=== PATIENT | female | born 1960 | race Caucasian/White ===

== ENCOUNTER 2016-07-20 02:15 | Inpatient (IN) | payer BC ==
[~2016-07-20] VITALS: Ht 172.7 cm; Wt 93.7 kg
[~2016-07-20 02:15] MED LIST: GLUCOSAMINE CHOND PO; MULTTAB58 PO
[2016-07-20 03:54] LABS: BASO % 0.5 %; BASO ABS # 0.03 K/uL (0-0.2); COMPLETE YES; EOS % 1.9 %; HEMATOCRIT 40.1 % (37-47); IG% 0.2 %; LYMPH % 41.4 %; LYMPH ABS # 2.42 K/uL (1.2-3.4); MEAN CELL VOLUME 87.2 fL (80-100); MEAN CORPUSCULAR HEMOGLOBIN 29.3 pg (25-34); MEAN CORPUSCULAR HGB CONC 33.7 g/dl (32-36); MEAN PLATELET VOLUME 10.5 fL (7.4-10.4); MONO % 7.4 %; NEUT % 48.6 %; PLATELET COUNT 244 K/uL (130-400); WHITE BLOOD COUNT 5.84 K/uL (4.8-10.8)
[2016-07-20 04:01] LABS: ALT/SGPT 28 U/L (12-78); AST/SGOT 21 U/L (15-37); BLOOD UREA NITROGEN 19 mg/dl (7-18); CALCIUM 8.6 mg/dl (8.5-10.1); CARBON DIOXIDE 27 mmol/L (21-32); CHLORIDE 108 mmol/L (98-107); CREATININE 0.94 mg/dl (0.60-1.20); GLUCOSE 94 mg/dl (70-99); POTASSIUM 3.8 mmol/L (3.5-5.1); SODIUM 146 mmol/L (136-145)
[2016-07-20 04:06] LABS: ALKALINE PHOSPHATASE 64 U/L (45-117)
--- NOTE | 2016-07-20 05:03 | EMERGENCY ROOM VISIT NOTE ---
History First contact with patient: 02:30 Chief Complaint: CHEST PAIN Stated Complaint: CHEST PAIN,TROUBLE BREATHING,ELEVATED BLOODBRESSUR Nursing Triage Summary: 130 pt started with chest pain. would have rated it an 8/10. started out as a burning pain, then became dull. pain radiated down right arm and into right hand. now pt c/o tightness and pressure in her chest. History of Present Illness The patient is a 55 year old female who presents to the Emergency Room with complaints of chest pain that woke her up out of sleep at 1:30 this morning that rated on both arms that diaphoretic with this. The pain has gotten slightly better. It comes and goes in severity. She had pizza last night for dinner. Family history of heart disease of her mother in her 70s. Patient has no active medical problems. No prior stress test or echocardiogram. No recent travel. She does not smoke. No diabetes or blood pressure or cholesterol. She describes the pain as pressure, ranging in severity 6 out of 10 left side of the chest. It does not currently radiate. Patient denies dyspnea, fever, chills, abdominal pain, vomiting, diarrhea, leg pain or swelling. She states activity makes it slightly worse. Review of Systems See HPI for pertinent positives & negatives. A total of 10 systems reviewed and were otherwise negative. Past Medical/Surgical History Hysterectomy, cholecystectomy Social History Smoking Status: Never Smoker Smokeless Tobacco Use: No Alcohol Use: none Drug Use: none Marital Status: Housing Status: lives with family Current/Historical Medications Scheduled Multiple Vitamin (Multivitamin), 1 TAB PO DAILY Allergies Coded Allergies: [place] (Verified Allergy, Intermediate, RASH,N/V, 07/20/16) Meperidine (Verified Adverse Reaction, Intermediate, N/V, 07/20/16) Physical Exam Vital Signs Date Time Temp Pulse Resp B/P Pulse Ox O2 Delivery O2 Flow Rate FiO2 07/20/16 04:12 71 20 132/90 98 Room Air 07/20/16 03:01 61 19 132/69 97 Room Air 07/20/16 02:32 99 Room Air 07/20/16 02:29 64 07/20/16 02:18 36.4 75 16 143/95 99 Room Air Physical Exam VITALS: Vitals are noted on the nurse's note and reviewed by myself. Vital signs stable. GENERAL: Pleasant female, in no acute distress, nondiaphoretic, well-developed well-nourished. SKIN: The skin was without rashes, erythema, edema, or bruising. There is no tenting of the skin. Capillary reflex less than 2 seconds. HEAD: Normocephalic atraumatic. EARS: External auditory canals clear, tympanic membranes pearly dale without erythema or effusion bilaterally. EYES: Pupils equal round and reactive to light and accommodation. Conjunctivae without injection, sclerae without icterus. Extraocular movements intact. NOSE: Patent, turbinates without inflammation or discharge. MOUTH: Mucous membranes moist. Pharynx without erythema or exudate. Uvula midline. Airway patent. Tongue does not deviate. NECK: Supple without nuchal rigidity. No lymphadenopathy. No thyromegaly. Cervical spine is nontender. No JVD. HEART: Regular rate and rhythm without murmurs gallops or rubs. Chest nontender to palpation LUNGS: Clear to auscultation bilaterally without wheezes, rales or rhonchi. No dullness to percussion. No retractions or accessory muscle use. ABDOMEN: Positive bowel sounds x 4. Normal tympanic percussion. Soft, nontender, without masses or organomegaly. Joseph sign negative. No guarding or rebound tenderness. MUSCULOSKELETAL: No muscle atrophy, erythema, or edema noted. NEURO: Patient was alert and oriented to person place and time. Normal sensation to light and sharp touch. No focal neurological deficits. Medical Decision & Procedures Laboratory Results 07/20/16 02:25 Red Blood Count 4.60, Mean Corpuscular Volume 87.2, Mean Corpuscular Hemoglobin 29.3, Mean Corpuscular Hemoglobin Concent 33.7, Mean Platelet Volume 10.5, Neutrophils (%) (Auto) 48.6, Lymphocytes (%) (Auto) 41.4, Monocytes (%) (Auto) 7.4, Eosinophils (%) (Auto) 1.9, Basophils (%) (Auto) 0.5, Neutrophils # (Auto) 2.84, Lymphocytes # (Auto) 2.42, Monocytes # (Auto) 0.43, Eosinophils # (Auto) 0.11, Basophils # (Auto) 0.03 07/20/16 02:25 Test 07/20/16 02:25 07/20/16 02:48 White Blood Count 5.84 K/uL (4.8-10.8) Red Blood Count 4.60 M/uL (4.2-5.4) Hemoglobin 13.5 g/dL (12.0-16.0) Hematocrit 40.1 % (37-47) Mean Corpuscular Volume 87.2 fL (80-100) Mean Corpuscular Hemoglobin 29.3 pg (25-34) Mean Corpuscular Hemoglobin Concent 33.7 g/dl (32-36) Platelet Count 244 K/uL (130-400) Mean Platelet Volume 10.5 fL (7.4-10.4) Neutrophils (%) (Auto) 48.6 % Lymphocytes (%) (Auto) 41.4 % Monocytes (%) (Auto) 7.4 % Eosinophils (%) (Auto) 1.9 % Basophils (%) (Auto) 0.5 % Neutrophils # (Auto) 2.84 K/uL (1.4-6.5) Lymphocytes # (Auto) 2.42 K/uL (1.2-3.4) Monocytes # (Auto) 0.43 K/uL (0.11-0.59) Eosinophils # (Auto) 0.11 K/uL (0-0.5) Basophils # (Auto) 0.03 K/uL (0-0.2) RDW Standard Deviation 42.4 fL (36.4-46.3) RDW Coefficient of Variation 13.3 % (11.5-14.5) Immature Granulocyte % (Auto) 0.2 % Immature Granulocyte # (Auto) 0.01 K/uL (0.00-0.02) Anion Gap 11.0 mmol/L (3-11) Est Creatinine Clear Calc Drug Dose 82.8 ml/min Estimated GFR () 80.3 Estimated GFR (Non- 69.3 BUN/Creatinine Ratio 20.0 (10-20) Calcium Level 8.6 mg/dl (8.5-10.1) Total Bilirubin 0.7 mg/dl (0.2-1) Direct Bilirubin 0.1 mg/dl (0-0.2) Aspartate Amino Transf (AST/SGOT) 21 U/L (15-37) Alanine Aminotransferase (ALT/SGPT) 28 U/L (12-78) Alkaline Phosphatase 64 U/L (45-117) Troponin I < 0.015 ng/ml (0-0.045) Total Protein 7.2 gm/dl (6.4-8.2) Albumin 3.9 gm/dl (3.4-5.0) Lipase 475 U/L (73-393) Bedside D-Dimer 85 ng/mlFEU (0-450) ED Course Prior records/ancillary studies reviewed. Triage Nursing notes reviewed. Additional history obtained from family The patient's history was concerning for chest pain. Differential diagnosis: Etiologies such as cardiac ischemia, aortic dissection, pulmonary embolism, pneumonia, pneumothorax, musculoskeletal, infections, pericarditis, myocarditis , esophageal rupture, gastrointestinal, as well as others were entertained. Physical examination: As above. ER treatment provided: Patient was observed On reassessment the patient felt better. Diagnostic interpretation by me: The electrocardiogram was negative for pathologic change. Normal sinus, normal intervals, no acute ST-T wave changes, rate of 62. Impression normal sinus rhythm interpreted by myself repeat EKG is unchanged The labs revealed negative d-dimer negative troponin Imaging studies: Chest x-ray with no overt heart failure, consolidation or pneumothorax per my interpretation Consultation: A consultation was placed with the hospitalist, Dr Rubi. The case was discussed and diagnostics were reviewed. The patient was evaluated in the ER for further treatment. Exam and history seem consistent with chest pain could be cardiac in etiology. Patient will be evaluated by medicine for possible admission. Negative d- dimer. Negative troponin. Unchanged EKG 2. She is a family history of heart disease. Symptoms were exertional.By the evaluation outlined above emergent etiologies such as aortic dissection, pulmonary embolism, pneumonia, pneumothorax, infections, pericarditis, myocarditis, gastrointestinal, as well as others were deemed relatively unlikely. The pt informed about the findings as listed above. All questions were answered and pleased with the treatment. Case reviewed with my attending Medical Decision As above Impression Primary Impression: Precordial chest pain Departure Information Dispostion Being Evaluated By Hospitalist Condition FAIR Referrals No Doctor, Assigned (PCP) Patient Instructions My [facility]
[2016-07-20] MEDS ORDERED: ZOLPIDEM TARTRATE 5 MG TAB PO PRN (05:15)
[2016-07-20] MEDS ORDERED: NITROGLYCERIN 0.4 MG SL PER TAB CHARGE SL PRN (05:15)
[2016-07-20] MEDS ORDERED: ACETAMINOPHEN 325 MG TAB PO PRN (05:15)
[2016-07-20] MEDS ORDERED: MAGNESIUM HYDROXIDE SUSP 30 ML UDC PO PRN (05:15)
[2016-07-20] MEDS ORDERED: ONDANSETRON INJ 2 MG/ML 2 ML VIAL IV PRN (05:15)
[2016-07-20] MEDS ORDERED: POLYETHYLENE (MIRALAX) 17 GM PACK PO PRN (05:15)
[2016-07-20] MEDS ORDERED: ALUMINUM/MAGNESIUM/SIMETH (MAALOX MAX) 30 ML UDC PO PRN (05:15)
[2016-07-20] MEDS ORDERED: MoRPHine SULFATE 2 MG/ML CARP IV PRN (05:15)
--- NOTE | 2016-07-20 05:28 | History and Physical ---
History & Physical Date & Time of Service: Jul 20, 2016 at 05:12 Chief Complaint: Chest Pain,Trouble Breathing,Elevated Bloodbressur Primary Care Physician: No Doctor, Assigned History of Present Illness Source: patient 55 y/o F who denies any active medical issues presents with a chief complaint of chest pain. The pt awoke form sleep with L sided CP accompanied by SOB and diaphoresis. She denies nausea, vomiting, lightheadedness or palpitations Her CP recurred in the ER which resolved spontaneously. 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 - does not smoke or drink Smoking Status: Never Smoker Smokeless Tobacco Use: No Drug Use: none Marital Status: Immunizations History of Influenza Vaccine: No History of Tetanus Vaccine?: Yes Tetanus Immunization Date: Dec 24, 2008 History of Pneumococcal: No History of Hepatitis B Vaccine: Yes Multi-Drug Resistant Organisms History of MDRO: No Allergies Coded Allergies: [place] (Verified Allergy, Intermediate, RASH,N/V, 07/20/16) Meperidine (Verified Adverse Reaction, Intermediate, N/V, 07/20/16) Home Medications Scheduled Multiple Vitamin (Multivitamin), 1 TAB PO DAILY Review of Systems Constitutional: No chills, No fever, No sweats Eyes: No eye pain, No worsening of vision ENT: No hearing loss, No nasal symptoms, No unusual epistaxis Respiratory: No cough, No sputum, No wheezing Cardiovascular: No PND, No chest pain, No orthopnea Abdomen: No nausea, No pain, No vomiting Musculoskeletal: No joint pain Genitourinary - Female: No dysuria, No urinary frequency, No urinary urgency Neurologic: No memory loss, No paralysis, No weakness Psychiatric: No depression symptoms Endocrine: No fatigue Hematologic / Lymphatic: No abnormal bleeding/bruising Integumentary: No rash Allergic / Immunologic: No environmental allergies Physical Exam Vital Signs Date Time Temp Pulse Resp B/P Pulse Ox O2 Delivery O2 Flow Rate FiO2 07/20/16 04:12 71 20 132/90 98 Room Air 07/20/16 03:01 61 19 132/69 97 Room Air 07/20/16 02:32 99 Room Air 07/20/16 02:29 64 07/20/16 02:18 36.4 75 16 143/95 99 Room Air General Appearance: WD/WN, no apparent distress Head: normocephalic Eyes: normal inspection, PERRL, EOMI ENT: normal ENT inspection, pharynx normal Neck: supple, no JVD Respiratory/Chest: chest non-tender, lungs clear, normal breath sounds, no respiratory distress, no accessory muscle use Cardiovascular: regular rate, rhythm, no edema, no gallop, no JVD, no murmur, normal peripheral pulses Abdomen/GI: normal bowel sounds, non tender, soft Back: normal inspection, no CVA tenderness Extremities/Musculoskelatal: normal inspection, no calf tenderness, normal capillary refill, no pedal edema, normal range of motion Neurologic/Psych: button buttonhole marker II-XII nml as tested, no motor/sensory deficits, alert Skin: normal color, warm/dry, no rash Diagnostics Laboratory Results Results Past 24 Hours Test 07/20/16 02:25 07/20/16 02:48 Range/Units White Blood Count 5.84 4.8-10.8 K/uL Red Blood Count 4.60 4.2-5.4 M/uL Hemoglobin 13.5 12.0-16.0 g/dL Hematocrit 40.1 37-47 % Mean Corpuscular Volume 87.2 80-100 fL Mean Corpuscular Hemoglobin 29.3 25-34 pg Mean Corpuscular Hemoglobin Concent 33.7 32-36 g/dl Platelet Count 244 130-400 K/uL Mean Platelet Volume 10.5 7.4-10.4 fL Neutrophils (%) (Auto) 48.6 % Lymphocytes (%) (Auto) 41.4 % Monocytes (%) (Auto) 7.4 % Eosinophils (%) (Auto) 1.9 % Basophils (%) (Auto) 0.5 % Neutrophils # (Auto) 2.84 1.4-6.5 K/uL Lymphocytes # (Auto) 2.42 1.2-3.4 K/uL Monocytes # (Auto) 0.43 0.11-0.59 K/uL Eosinophils # (Auto) 0.11 0-0.5 K/uL Basophils # (Auto) 0.03 0-0.2 K/uL RDW Standard Deviation 42.4 36.4-46.3 fL RDW Coefficient of Variation 13.3 11.5-14.5 % Immature Granulocyte % (Auto) 0.2 % Immature Granulocyte # (Auto) 0.01 0.00-0.02 K/uL Sodium Level 146 136-145 mmol/L Potassium Level 3.8 3.5-5.1 mmol/L Chloride Level 108 98-107 mmol/L Carbon Dioxide Level 27 21-32 mmol/L Anion Gap 11.0 3-11 mmol/L Blood Urea Nitrogen 19 7-18 mg/dl Creatinine 0.94 0.60-1.20 mg/dl Est Creatinine Clear Calc Drug Dose 82.8 ml/min Estimated GFR () 80.3 Estimated GFR (Non- 69.3 BUN/Creatinine Ratio 20.0 10-20 Random Glucose 94 70-99 mg/dl Calcium Level 8.6 8.5-10.1 mg/dl Total Bilirubin 0.7 0.2-1 mg/dl Direct Bilirubin 0.1 0-0.2 mg/dl Aspartate Amino Transf (AST/SGOT) 21 15-37 U/L Alanine Aminotransferase (ALT/SGPT) 28 12-78 U/L Alkaline Phosphatase 64 45-117 U/L Troponin I < 0.015 0-0.045 ng/ml Total Protein 7.2 6.4-8.2 gm/dl Albumin 3.9 3.4-5.0 gm/dl Lipase 475 73-393 U/L Bedside D-Dimer 85 0-450 ng/mlFEU Normal EKG Impression Assessment and Plan 55 y/o F who denies any active medical issues presents with a chief complaint of chest pain. The pt awoke form sleep with L sided CP accompanied by SOB and diaphoresis. She denies nausea, vomiting, lightheadedness or palpitations Her CP recurred in the ER which resolved spontaneously. Pt will be assigned to telemetry. CP will be treated with NTG or Morphine PRN. Troponins will be trended. She has been provide with ASA and low dose heparin. She should likely be scheduled for stress testing although if her CP does not recur this can likely be scheduled iin the oupt setting. Full code - Heparin prophylaxis Total time for this admit including chart review - review of meds, labs, imaging - discussion with pt and ER attending 36 min Level of Care Telemetry Resuscitation Status FULL RESUSCITATION VTE Prophylaxis VTE Risk Assessment Done? Y/N: Yes Risk Level: Low Given or contraindicated: Unfractionated heparin SQ
[2016-07-20 05:30] VITALS: BP 151/82; PULSE 60; Ht 172.7 cm; Wt 93.7 kg
[2016-07-20 05:40] VITALS: O2SAT 98
[2016-07-20] MEDS ORDERED: NSS + 20MEQ KCL 1000ML 1,000 ML IV SCH (07:00)
--- NOTE | 2016-07-20 07:14 | DIAGNOSTIC IMAGING REPORT ---
SINGLE VIEW CHEST CLINICAL HISTORY: Atypical chest pain. FINDINGS: An AP, portable, upright chest radiograph is compared to study dated 08/13/2009. The examination is degraded by portable technique and patient rotation. The cardiomediastinal silhouette is unremarkable. There is mild elevation of the right hemidiaphragm. The lungs and pleural spaces are otherwise clear. No pneumothorax is seen. The skeletal structures are osteopenic. The bony thorax is grossly intact. Cholecystectomy clips are seen in the right upper quadrant. IMPRESSION: No acute cardiopulmonary abnormality. Electronically signed by: Adams Coughlin M.D. 07/20/2016 7:13 AM Dictated Date/Time: 07/20/2016 7:12 AM
[2016-07-20 07:30] VITALS: BP 132/82; PULSE 72; TEMP 36.9; O2SAT 97
[2016-07-20] MEDS ORDERED: ASPIRIN 81 MG ECTAB PO SCH (09:00)
[2016-07-20 09:17] LABS: PROTHROMBIN TIME (PATIENT) 10.6 SECONDS (9.0-12.0)
[2016-07-20 11:15] VITALS: BP 122/82; PULSE 72; TEMP 36.6; O2SAT 97
[2016-07-20] MEDS ORDERED: PERFLUTREN LIPID MICROSPHERE (DEFINITY) IV ONE (13:03)
[2016-07-20] MEDS ORDERED: HEPARIN SOD 5000 UNIT/0.5 ML CARP SQ SCH (14:00)
--- NOTE | 2016-07-20 14:21 | EXERCISE STRESS ECHO ---
*NOTICE TO RECEIVING CONSTITUTION PARTY AGENCY This information is strictly Confidential and protected under [place] law. [place] law prohibits you from making any further disclosure of this information unless further disclosure is expressly permitted by the written consent of the person to whom it pertains or is authorized by law. A general authorization for the release of medical or other information is not sufficient for this purpose. Hospital accepts no responsibility if the information is made available to any other person, INCLUDING THE PATIENT. Interpretation Summary * Name: BORIS CUBA Study Date: 07/20/2016 11:34 AM BP: 129/77 mmHg * Patient Location: .MSICU\S\E110\S\1 HR: 74 * : 1960 (M/d/yyyy) Gender: Female Height: 68 in * Age: 55 yrs Ethnicity: CA Weight: 206 lb * Ordering Physician: Oscar Knowles * Referring Physician: Self, Referred * Performed By: Rosalind Rothman RCS * * Reason For Study: Chest Pain * BSA: 2.1 m2 * -- Conclusions -- * Normal stress echocardiogram at 12 METS and a peak heart rate of 92% maximum predicted. * No exercise induced chest pain. * No ECG changes. * Baseline echocardiogram notes normal left ventricular systolic function and mild tricuspid regurgitation. Procedure Details * ECHOEX, CPT #[id number] * ECHO COLOR FLOW, CPT #[id number] * ECHO DOPPLER, CPT #[id number] * A contrast injection of Definity was performed to improve assessment of LV function. * Contrast was injected into an intravenous site in the right arm. * One vial of Definity ultrasound contrast was diluted in normal saline to a total volume of 10 ml. A total of '4' ml of solution was administered during imaging. * Lot # [id number] of Definity utilized for procedure. * Expiration date . * The attending nurse who injected the contrast agent was Jose Antonio Rogers RN. Left Ventricle * The left ventricle is normal in size. * There is normal left ventricular wall thickness. * Ejection Fraction = 65-70%. * Left ventricular systolic function is normal. * Resting wall motion: Normal. Stress wall motion: Appropriate increase in Left ventricular systolic function and decrease in cavity size. No stress induced segmental wall motion abnormalities. Right Ventricle * The right ventricle is not well visualized. * The right ventricular systolic function is normal as assessed by tricuspid annular plane systolic excursion (TAPSE) (normal >1.5 cm). Atria * The left atrial size is normal. * Right atrial size is normal. * There is no evidence of atrial septal defect, but resolution does not allow assessment for a patent foramen ovale. Mitral Valve * The mitral valve is grossly normal. * There is no mitral valve stenosis. * Significant mitral regurgitation is absent. Tricuspid Valve * The tricuspid valve is not well visualized, but is grossly normal. * There is no tricuspid stenosis. * There is mild tricuspid regurgitation. Aortic Valve * The aortic valve is trileaflet. * The aortic valve opens well. * No hemodynamically significant valvular aortic stenosis. * There is no significant aortic regurgitation. Pulmonic Valve * The pulmonary valve is not well seen, but the Doppler examination is normal without significant regurgitation or stenosis. Great Vessels * The aortic root is normal size. Pericardium * There is no pericardial effusion. Stress Parameters * Normal baseline electrocardiogram. * Stress ECG: No ST changes. No arrhythmias. * Rest heart rate was '74' BPM. * Rest blood pressure was '129/77' * Maximum heart rate achieved was 155 bpm. * Maximum heart rate was 92 % of maximum age-predicted heart rate. * Maximum blood pressure was '169/83' * Total exercise time was '10:10' * Maximum exercise MET level achieved was '12' METS * Maximum treadmill speed was '4.2' miles per hour. * Maximum treadmill elevation was '16'% grade. * Exercise was terminated due to 'fatigue' MMode 2D Measurements and Calculations IVSd 0.83 cm IVSs 1.2 cm LVIDd 3.9 cm LVIDs 2.5 cm LVPWd 0.86 cm LVPWs 1.3 cm IVS/LVPW 0.97 FS 35.1 % EDV(Teich) 64.0 ml ESV(Teich) 22.3 ml EF(Teich) 65.1 % EDV(cubed) 57.2 ml ESV(cubed) 15.6 ml EF(cubed) 72.7 % % IVS thick 43.0 % % LVPW thick 51.8 % LV mass(C)d 95.2 grams LV mass(C)dI 46.0 grams/m\S\2 LV mass(C)s 91.7 grams LV mass(C)sI 44.3 grams/m\S\2 CO(Teich) 2.8 l/min CI(Teich) 1.4 l/min/m\S\2 SV(Teich) 41.7 ml SI(Teich) 20.2 ml/m\S\2 CO(cubed) 2.8 l/min CI(cubed) 1.3 l/min/m\S\2 SV(cubed) 41.6 ml SI(cubed) 20.1 ml/m\S\2 Ao root diam 3.5 cm Ao root area 9.4 cm\S\2 ACS 1.7 cm LA dimension 3.3 cm LA/Ao 0.95 LVAd ap4 39.5 cm\S\2 LVLd ap4 9.3 cm EDV(MOD-sp4) 140.0 ml LVAs ap4 19.5 cm\S\2 LVLs ap4 7.3 cm ESV(MOD-sp4) 44.9 ml EF(MOD-sp4) 67.9 % LVAd ap2 32.5 cm\S\2 LVLd ap2 8.8 cm EDV(MOD-sp2) 100.0 ml LVAs ap2 16.1 cm\S\2 LVLs ap2 7.4 cm ESV(MOD-sp2) 29.2 ml EF(MOD-sp2) 70.8 % CO(MOD-sp4) 6.4 l/min CI(MOD-sp4) 3.1 l/min/m\S\2 SV(MOD-sp4) 95.1 ml SI(MOD-sp4) 45.9 ml/m\S\2 CO(MOD-sp2) 4.7 l/min CI(MOD-sp2) 2.3 l/min/m\S\2 SV(MOD-sp2) 70.8 ml SI(MOD-sp2) 34.2 ml/m\S\2 Doppler Measurements and Calculations MV E max esteban 76.0 cm/sec MV A max esteban 61.8 cm/sec MV E/A 1.2 MV P1/2t max esteban 81.2 cm/sec MV P1/2t 67.8 msec MVA(P1/2t) 3.2 cm\S\2 MV dec slope 351.1 cm/sec\S\2 MV dec time 0.24 sec Ao V2 max 135.1 cm/sec Ao max PG 7.3 mmHg Ao max PG (full) 1.8 mmHg LV V1 max PG 5.5 mmHg LV V1 max 116.9 cm/sec PA V2 max 167.1 cm/sec PA max PG 11.2 mmHg TR max esteban 210.4 cm/sec
--- NOTE | 2016-07-20 14:47 | Discharge Instructions ---
Discharge Instructions Admission Reason for Admission: Precordial Chest Pain Discharge Discharge Diagnosis / Problem: non cardiac chest pain Discharge Goals Goal(s): Diagnostic testing Activity Recommendations Activity Limitations: resume your previous activity . Instructions / Follow-Up Instructions / Follow-Up Please consider using an over the counter acid suppression medication if your symptoms return Please follow up with your Primary Care doctor for further evaluation if needed Current Hospital Diet Patient's current hospital diet: AHA Diet (Heart Healthy) Discharge Diet Recommended Diet: Regular Diet Procedures Procedures Performed: Stress Echo negative for cardiac issues Pending Studies Studies pending at discharge: no Medical Emergencies . Who to Call and When: Medical Emergencies: If at any time you feel your situation is an emergency, please call 911 immediately. . Non-Emergent Contact Non-Emergency issues call your: Primary Care Provider . . "Provider Documentation" section prepared by Oscar Knowles. VTE Core Measure Inpt VTE Proph given/why not?: Unfractionated heparin SQ
[2016-07-20 14:54] VITALS: BP 122/82; PULSE 72; TEMP 36.6; O2SAT 97
--- NOTE | 2016-07-21 07:21 | Discharge Summary ---
Discharge Summary Admission Date: Jul 20, 2016 at 05:09 Discharge Date: Jul 20, 2016 Discharge Disposition: Home Principal Diagnosis: non cardiac chest pain Immunizations: Have You Had Influenza Vaccine: No History of Tetanus Vaccine?: Yes Tetanus Immunization Date: Dec 24, 2008 History of Pneumococcal: No History of Hepatitis B Vaccine: Yes Procedures: exercise stress echo negative for suggestion of cardiac ischemia Medication Reconciliation Continued Medications: Multiple Vitamin (Multivitamin) 1 Tab Tab 1 TAB PO DAILY Discharge Exam Review of Systems: Constitutional: No chills, No fever Respiratory: No cough, No sputum, No wheezing Cardiovascular: No chest pain, No orthopnea Abdomen: No nausea, No pain, No vomiting Musculoskeletal: No joint pain, No muscle pain Genitourinary - Female: No dysuria, No urinary frequency Physical Exam: General Appearance: WD/WN, no apparent distress Eyes: PERRL, EOMI Neck: supple, no JVD Respiratory/Chest: chest non-tender, lungs clear, normal breath sounds Cardiovascular: regular rate, rhythm, no murmur Abdomen / GI: normal bowel sounds, non tender, soft, no organomegaly Neurologic/Psychiatric: alert, oriented x 3 Hospital Course 55 F with Chest pain, risk factor of family history, initial Troponin and ECG negative Underwent stress testing without recurrence of symptoms or suggestion of ischemia on echo released to consider otc PPI or follow up with pcp to discuss Total Time Spent: Greater than 30 minutes This includes examination of the patient, discharge planning, medication reconciliation, and communication with other providers. Discharge Instructions Please refer to the electronic Patient Visit Report (Discharge Instructions) for additional information.
== END 2016-07-20 16:00 | disposition home or self-care (01) | DRG 313 ==
LOC: ENRESERVDT → ENRESERVTM → C.EDB 02:17 → C.MSICU 05:09
PROVIDERS: ADMIT Internal Medicine; ATTEND Internal Medicine
DX: R07.89 Other chest pain (principal)

== ENCOUNTER → 2017-07-15 | Outpatient (CLI) | payer BC ==
[~2017-07-15] MED LIST changes: -GLUCOSAMINE CHOND PO
== END | disposition home or self-care (01) ==
LOC: C.PAPS 09:51
PROVIDERS: ATTEND Obstetrics & Gynecology
DX: Z01.419 Encounter for gynecological examination (general) (routine) without abnormal findings (principal)

== ENCOUNTER → 2017-08-23 | Outpatient (CLI) | payer BC | END | disposition home or self-care (01) | LOC: C.PAPS 15:15 | PROVIDERS: ATTEND Obstetrics & Gynecology | DX: R87.615 Unsatisfactory cytologic smear of cervix (principal) ==

== ENCOUNTER 2017-09-28 15:24 | Emergency (ER) | payer BC ==
[~2017-09-28] VITALS: Ht 172.7 cm; Wt 91.2 kg
[2017-09-28 15:27] VITALS: TEMP 36.4; Ht 172.7 cm; Wt 91.2 kg
--- NOTE | 2017-09-28 16:31 | DIAGNOSTIC IMAGING REPORT ---
HEAD WITHOUT CONTRAST (CT) CLINICAL HISTORY: 56 years-old Female with same. Acute right-sided facial pain with recent head injury. Acute confusion TECHNIQUE: Multiple axial CT images of the head were obtained without contrast. A dose lowering technique was utilized adhering to the principles of ALARA. CT DOSE: 882.16 mGy.cm COMPARISON: CT maxillofacial same day FINDINGS: No acute intracranial hemorrhage, midline shift, intracranial mass, hydrocephalus, territorial ischemia or abnormal extra-axial collection. Senescent calcifications of the left lentiform nucleus. 6 mm ovoid peripherally calcified structure within the left posterior fossa at the level of the foramen magnum suggests possible calcified vertebral artery seen on image 5 series 2. Mild cerebral atrophy. The calvarium is intact. The paranasal sinuses, mastoid air cells, and middle ear cavities are clear. IMPRESSION: No acute intracranial abnormality identified. The above report was generated using voice recognition software. It may contain grammatical, syntax or spelling errors. Electronically signed by: Giancarlo Gonsalves M.D. 09/28/2017 4:29 PM Dictated Date/Time: 09/28/2017 4:26 PM
--- NOTE | 2017-09-28 16:31 | DIAGNOSTIC IMAGING REPORT ---
CT FACIAL BONES-MXILLOFAC WITHOUT CT DOSE: CLINICAL HISTORY: Right facial pain status post trauma COMPARISON STUDY: No previous studies for comparison. TECHNIQUE: Helical images were acquired in the transverse plane. The study was reviewed and analyzed on the independent 3-D workstation. A dose lowering technique was utilized adhering to the principles of ALARA. The pterygoid plates appear intact. The zygomatic arches appear intact. The globes appear intact. There is no evidence of orbital emphysema. The orbital joe and floor appear intact. The mandibular condyles appear intact. IMPRESSION: No facial fractures identified. Electronically signed by: Liam Mayorga M.D. 09/28/2017 4:30 PM Dictated Date/Time: 09/28/2017 4:28 PM
[2017-09-28 17:18] VITALS: BP 110/68; PULSE 64; O2SAT 98
--- NOTE | 2017-09-29 00:01 | EMERGENCY ROOM VISIT NOTE ---
ED Visit Note First contact with patient: 15:30 Chief Complaint: Head injury. History of Present Illness: Ms. Lang is a 56-year-old white female who ambulates into the ED complaining of a possible head injury. 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 She reports immediately after this happened she remembers her vision going black and collapsing to the gym floor. It is unknown if she had a true loss of consciousness and for how long. She does report when she was arousable she saw another person standing above her. Immediately after the injury she reports she had a headache and right-sided facial pain and rated her discomfort 8/10. Throughout yesterday evening and today she reports she continued to have a mild headache. She describes her headache as a global sensation. She currently rates her discomfort 2/10. Her pain is nonradiating. She is taken acetaminophen with minimal relief of her symptoms. Additionally she reports upon waking this morning she was experiencing some neck pain but this has subsequently resolved; she questions if this is related to her injury or her normal sleeping patterns. Associated with her headache is right sided facial pain over the zygomatic arch area and the corner of the upper lip, difficulty focusing her attention, intermittent dizziness, lightheadedness on standing, mild light sensitivity and intermittent nausea without vomiting. She denies visual changes, hearing changes, difficulty speaking, difficulty swallowing, difficulty coordinating body movements, chest pain, shortness of breath, abdominal pain, extremity weakness/numbness/tingling. Review of Systems: As noted above in history of present illness. All body systems were reviewed and found to be negative as noted above. Past Medical History: Status post cholecystectomy. Current Medications: Multivitamins. Allergies to Medications: Meperidine. Social History: Patient is currently employed; she feels safe in her home environment; she denies tobacco use. Physical Examination: Vital Signs: Date Time Temp Pulse Resp B/P (MAP) Pulse Ox O2 Delivery O2 Flow Rate FiO2 09/28/17 17:18 64 20 110/68 98 Room Air 09/28/17 15:27 36.4 70 16 124/69 99 Room Air GENERAL: 56-year-old female in mild distress due to symptoms, nontoxic-appearing , afebrile and hemodynamically stable. NEUROLOGICAL: Awake, alert and oriented to person, place and time. Answering questions appropriately and following commands. Normal gait. Good hand eye coordination. Romberg test unsteady but negative. Pronator drift test negative. Cranial nerves II through XII grossly intact. Able to spell and count backwards. Normal judgment and abstract thinking. Normal rapid alternating movements of the hands. Normal heel kimbrough test. SKIN: Warm, dry and pink. Face: In the corner of the right upper lip patient has a small amount of ecchymosis and over the right zygomatic arch she has the development of a early contusion. HEENT: Atraumatic and normocephalic. Skull: No bony deformity, bony crepitus, swelling or ecchymosis. No raccoons eyes or lockett signs. No drainage from the ears or nostrils; no hemotympanum. Face: Soft tissue injuries as noted above under SKIN. Moderate tenderness over the zygomatic arch without bony deformity or crepitus. No intraoral trauma was noted. No dental tenderness or dental injuries. Airway was patent. Speech was normal and clear. PERRLA. EOMI without nystagmus. Sclera white and conjunctiva pink. No malocclusion. Trachea midline. No jugular venous distention. BACK: No tenderness over the bony cervical, thoracic and lumbar spine. Full range of motion of the cervical spine. THORAX: Lungs sounds are clear to auscultation and equal bilaterally with symmetrical chest wall. No wheezing, rales or rhonchi. ABDOMEN: Flat, soft and nontender. Positive bowel sounds in all quadrants. No guarding, rigidity or organomegaly. EXTREMITIES: Moves all extremities well on command and with purpose. All distal neurovascular statuses are intact and equal bilaterally. 4/5 muscle strength in all movements of the upper and lower extremity joints. ED Course: Patient is assessed as noted above. Patient's medication list was reviewed. Patient was offered pain medication and refused. Head CT: Was reviewed by myself and read by the radiologist showing no acute intracranial abnormalities or skull fractures. Facial CT: Was reviewed by myself and read by the radiologist showing no facial fractures. Patient was educated about today's findings and instructed on her treatment plan ; she verbalized understanding and agreement with this plan. Clinical Impression: Closed head injury. Facial contusions. Decision-Making: Initially my differential diagnosis I considered intracranial bleed, skull fracture, facial fracture, concussion and other causes. Disposition: Patient discharged home in stable condition; prior to departure she was reassessed and subjectively reported she was feeling better and rated her discomfort 06/23. Plan: Comfort measures were discussed with the patient including use of ibuprofen and acetaminophen and ice. Patient was encouraged to rest for the next 48 hours and do not participate in any strenuous physical activities. Patient was educated on signs of worsening head injuries. Patient was encouraged to stay well-hydrated and avoid alcohol use. Patient was encouraged to follow-up with her PCP for recheck in 3-4 days. Patient was encouraged return the ED for any signs of worsening head injury or any new/concerning symptoms.
== END 2017-09-28 17:19 | disposition home or self-care (01) ==
LOC: C.ED 15:25 → C.EDD 17:19
DX: S09.90XA Unspecified injury of head, initial encounter (principal); S00.531A Contusion of lip, initial encounter; W21.05XA Struck by basketball, initial encounter; Z88.6 Allergy status to analgesic agent